=== PATIENT | female | born 1985 | race Hispanic/Latino ===

== ENCOUNTER 2022-12-10 04:02 | Emergency (ER) | payer OTHER ==
[2022-12-10] MEDS ORDERED: diphenhydrAMINE 50 MG/ML VIAL ONE (04:42)
[2022-12-10] MEDS ORDERED: Ondansetron PF 4 MG/2 ML Vial ONE ×2 (04:42→04:48)
[2022-12-10 04:51] LABS: #Basophils 0.2 thou/uL (0.0-0.2); #Eosinphils 0.1 thou/uL (0.0-0.7); #Lymphocytes 3.1 thou/uL (1.20-3.40); #Monocytes 0.6 thou/uL (0.11-0.59); #Neutrophils 6.7 thou/uL (1.40-6.50); %Basophils 1.5 % (0.0-1.0); %Lymphocytes 28.9 % (21.0-51.0); %Monocytes 5.7 % (0.0-10.0); %Neutrophils 62.9 % (42.0-75.0); Hemoglobin 13.2 g/dL (12.0-16.0); Mean Corpuscular HGB CONC 35.2 g/dL (32.0-36.0); Mean Corpuscular Hemoglobin 28.8 pg (27.0-31.0); Mean Corpuscular Volume 81.9 fl (78.0-98.0); Mean Platelet Volume 8.4 fL (7.4-10.4); Platelet Count 303 10x3/uL (130-400); RBC Distribution Width 13.5 % (11.5-14.5); White Blood Cell (WBC) Count 10.7 10x3/uL (4.8-10.8)
[2022-12-10 05:12] LABS: BHCG - Serum POSITIVE (NEGATIVE); Pregs Control Background? CLEAR/WHITE (CLR/WHITE); Pregs Control Bar Appear? YES (CONTROL BAR)
[2022-12-10 05:19] LABS: Acetaminophen Less than 10.0 mcg/mL (10.0-30.0); Alcohol 216 mg/dL (Less than 10); Salicylate Less than 8.0 mg/dL (15.0-30.0)
[2022-12-10 05:20] LABS: ALT (SGPT) 24 U/L (8-55); AST (SGOT) 26 U/L (5-34); Albumin 4.2 g/dL (3.5-5.0); Alkaline Phosphatase 83 U/L (40-110); Anion Gap 18 mmol/L (10-20); BUN (Urea Nitrogen) 11 mg/dL (7.0-18.7); Bilirubin, Total 0.2 mg/dL (0.2-1.2); Calc. Creatinine Clearance 0 mL/min (70-130); Carbon Dioxide 14 mmol/L (22-29); Chloride 108 mmol/L (98-107); Estimated GFR 117; Globulin 3.7 g/dL (2.4-3.5); Glucose 110 mg/dL (70-105); Lipase 19 U/L (8-78); Protein, Total 7.9 g/dL (6.0-8.3); Sodium 137 mmol/L (136-145)
== END 2022-12-10 07:59 | disposition home or self-care (01) ==
LOC: ERS 04:02 → EDBD 04:02 → ERS 07:59
DX: F10.129 Alcohol abuse with intoxication, unspecified (principal); Z32.01 Encounter for pregnancy test, result positive; Z33.1 Pregnant state, incidental
CPT/HCPCS: 80053; 80307; 83690; 84703; 85025; 96374; 96375; J1200; J2405

== ENCOUNTER 2022-12-13 02:39 | Emergency (ER) | payer OTHER ==
[2022-12-13] MEDS ORDERED: Ondansetron ODT 4 MG TAB ONE (03:24)
[2022-12-13] MEDS ORDERED: Acetaminophen 500 MG TAB ONE (03:42)
== END 2022-12-13 04:32 | disposition home or self-care (01) ==
LOC: ERS 02:39
DX: J02.8 Acute pharyngitis due to other specified organisms (principal); Z20.822 Contact with and (suspected) exposure to COVID-19
CPT/HCPCS: 87081; 87430; 99283; Q0162; U0003; U0005